=== PATIENT | male | born 1985 | race African-American/Black ===

== ENCOUNTER 2017-10-24 14:27 | Inpatient (IN) | payer OTHER ==
--- NOTE | 2017-10-24 15:49 | HP ---
CIWA Score - CIWA Score Nausea/Vomitin-No Nausea/No Vomiting Muscle Tremors: 4-Moderate,w/Arms Extend Anxiety: 4-Mod. Anxious/Guarded Agitation: 1-Slight > Activity Paroxysmal Sweats: 3 Orientation: 2-Disoriented Date<2 days Tacttile Disturbances: 1-Very Mild Itch/Numbness Auditory Disturbances: 0-None Visual Disturbances: 0-None Headache: 3-Moderate CIWA-Ar Total Score: 18 Admission ROS BHS - HPI Chief Complaint: I am here to detox from alcohol History of Present Illness: 32 yo male with a 15 year hx of alcohol dependence and hx of HTN with no medications. Last detox and rehab 3 years ago at [facility]. Longest period of sobriety 2 year with AA. Exam Limitations: No Limitations - Ebola screening Have you traveled outside of the country in the last 21 days: No (N) Have you had contact with anyone from an Ebola affected area: No Have you been sick,other than usual withdrawal symptoms: No Do you have a fever: No - Review of Systems Constitutional: Diaphoresis, Loss of Appetite, Unintentional Wgt. Loss EENT: reports: No Symptoms Reported Respiratory: reports: No Symptoms reported Cardiac: reports: No Symptoms Reported GI: reports: No Symptoms Reported : reports: No Symptoms Reported Musculoskeletal: reports: Joint Pain, Muscle Pain (pain right shoulder) Integumentary: reports: Other (dry skin) Neuro: reports: Headache, Tremors Hematology: reports: No Symptoms Reported Psychiatric: reports: Mood/Affect Appropiate, Orientated x3, Anxious, Depressed , other Other Systems: Reviewed and Negative Patient History - Patient Medical History Hx Anemia: No Hx Asthma: No Hx Chronic Obstructive Pulmonary Disease (COPD): No Hx Cancer: No Hx Cardiac Disorders: No Hx Congestive Heart Failure: No Hx Hypertension: Yes (No medications ) Hx Hypercholesterolemia: No Hx Pacemaker: No HX Cerebrovascular Accident: No Hx Seizures: No Hx Dementia: No Hx Diabetes: No Hx Gastrointestinal Disorders: No Hx Liver Disease: No Hx Genitourinary Disorders: No Hx Sexually Transmitted Disorders: No Hx Renal Disease (ESRD): No Hx Thyroid Disease: No Hx Human Immunodeficiency Virus (HIV): No (Negative ( 1 year ago)) Hx Hepatitis C: No Hx Depression: Yes Hx Suicide Attempt: No Hx Bipolar Disorder: No Hx Schizophrenia: No Other Medical History: reports hx of Anxiety - Patient Surgical History Past Surgical History: No Hx Neurologic Surgery: No Hx Cataract Extraction: No Hx Cardiac Surgery: No Hx Lung Surgery: No Hx Breast Surgery: No Hx Breast Biopsy: No Hx Abdominal Surgery: No Hx Appendectomy: No Hx Cholecystectomy: No Hx Genitourinary Surgery: No Hx Orthopedic Surgery: No Anesthesia Reaction: No - PPD History Previous Implant?: Yes Documented Results: Negative w/o proof Implanted On Prior [facility] Admission?: No PPD to be Administered?: Yes - Reproductive History Patient is a Female of Child Bearing Age (11 -55 yrs old): No - Smoking Cessation Smoking history: Current some day smoker Have you smoked in the past 12 months: Yes Aproximately how many cigarettes per day: 10 (10 years) Hx Chewing Tobacco Use: No Initiated information on smoking cessation: Yes 'Breaking Loose' booklet given: 10/24/17 - Substance & Tx. History Hx Alcohol Use: Yes Hx Substance Use: No Hx Substance Use Treatment: Yes (Detox and Rehab 3 years ago at [facility]) - Substances Abused Alcohol Route: Oral Frequency: Daily Amount used: 1 pint of vodka Age of first use: 15 Date of Last Use: 10/23/17 Family Disease History - Family Disease History Family Disease History: CA: Mother ( Breast cancer ), Other: Father ( Alieve and well), Sister (alieve no significant health hx) Admission Physical Exam S - Vital Signs Vital Signs: Vital Signs - 24 hr 10/24/17 14:36 Temperature 96.5 F L Pulse Rate 95 H Respiratory 18 Rate Blood Pressure 164/95 - Physical General Appearance: Yes: No Apparent Distress, Appropriately Dressed, Sweating, Anxious HEENTM: Yes: Hearing grossly Normal, Normal ENT Inspection, Normocephalic, Normal Voice, REYNA, Pharynx Normal Respiratory: Yes: Chest Non-Tender, Lungs Clear, No Respiratory Distress, No Accessory Muscle Use Neck: Yes: No masses,lesions,Nodules, Supple, Trachea in good position Breast: Yes: Breast Exam Deferred Cardiology: Yes: Regular Rhythm, Regular Rate, S1, S2 Abdominal: Yes: Normal Bowel Sounds, Non Tender, Flat, Soft Genitourinary: Yes: Within Normal Limits (no urinary symptoms reported) Back: Yes: Within Normal Limits, Normal Inspection Musculoskeletal: Yes: full range of Motion, Gait Steady Extremities: Yes: Normal Capillary Refill, Normal Inspection, Normal Range of Motion, Non-Tender Neurological: Yes: felt washing machine tender II-XII NML intact, Fully Oriented, Alert, Motor Strength 5/5, Normal Response, Depressed Affect Integumentary: Yes: Normal Color, Dry, Warm, Other (poor skin turgor) Lymphatic: Yes: Within Normal Limits - Diagnostic (1) Alcohol dependence with uncomplicated withdrawal Current Visit: Yes Status: Acute (2) Anxious mood Current Visit: Yes Status: Acute (3) Depressed mood Current Visit: Yes Status: Acute (4) Dehydration Current Visit: Yes Status: Acute Cleared for Admission [facility] - Detox or Rehab [facility] Level of Care: Medically Managed Detox Regimen/Protocol: Librium [facility] Breath Alcohol Content Breath Alcohol Content: 0.207 Vital Signs - Vital Signs Vital Signs Refused: No Temperature: 96.5 F Temperature Source: Oral Pulse Rate: 95 Respiratory Rate: 18 Blood Pressure: 164/95 BP Location: Right Arm Blood Pressure Position: Sitting - Height Height: 5 ft 11 in - Weight Weight: 69 kg Weight Measurement Method: Standing Scale Body Mass Index (BMI): 21.2 - Bowel Function Bowel Movement: Yes Urine Drug Screen - Results Drug Screen Negative: Yes
[2017-10-24 16:06] VITALS: BMI 21.2
[2017-10-24] MEDS ORDERED: MAGNESIUM HYDROX 2400MG/30ML ORAL SUSPENSION 30 ML CUP PO PRN (16:10)
[2017-10-24] MEDS ORDERED: MAG HYDROX/AL HYDROX/SIMETH 30 ML UNIT-DOSE CUP PO PRN (16:10)
[2017-10-24] MEDS ORDERED: hydrOXYzine PAMOATE 50 MG CAPSULE (FP) PO PRN (16:10)
[2017-10-24] MEDS ORDERED: ACETAMINOPHEN 325 MG TABLET (FP) PO PRN (16:10)
[2017-10-24] MEDS ORDERED: MAGNESIUM CITRATE 300 ML BOTTLE PO PRN (16:10)
[2017-10-24] MEDS ORDERED: NICOTINE POLACRILEX 2 MG GUM BC PRN (16:10)
[2017-10-24] MEDS ORDERED: LOPERAMIDE HCL 2 MG CAPSULE PO PRN (16:10)
[2017-10-24] MEDS ORDERED: guaiFENesin/D-METHORPHAN HB 10 ML UNIT-DOSE CUPS PO PRN (16:10)
[2017-10-24] MEDS ORDERED: P-EPHED 60MG/TRIPROLIDI 2.5MG TABLET PO PRN (16:10)
[2017-10-24] MEDS ORDERED: IBUPROFEN 400 MG TABLET (FP) PO PRN (16:10)
[2017-10-24] MEDS ORDERED: chlordiazePOXIDE HCL 25 MG CAPSULE PO PRN (16:10)
[2017-10-24] MEDS ORDERED: MENTHOL/PHENOL 1 EACH UD MM PRN (16:10)
[2017-10-24] MEDS ORDERED: chlordiazePOXIDE HCL 25 MG CAPSULE PO ONE (17:00)
[2017-10-24] MEDS: chlordiazePOXIDE HCL 25 MG CAPSULE PO SCH ×2 (20:57→22:42)
[2017-10-24] MEDS: NICOTINE 14 MG/24 HOURS TOPICAL PATCH TD SCH (20:58)
[2017-10-24] MEDS: THIAMINE HCL 100 MG TABLET (FP) PO SCH (22:42)
[2017-10-24 23:36] LABS: URINE APPEARANCE CLEAR; URINE BILIRUBIN NEGATIVE (NEGATIVE); URINE BLOOD NEGATIVE (NEGATIVE); URINE COLOR YELLOW; URINE GLUCOSE (UA) NEGATIVE (NEGATIVE); URINE KETONE NEGATIVE (NEGATIVE); URINE LEUK ESTERASE NEGATIVE (NEGATIVE); URINE NITRITE NEGATIVE (NEGATIVE); URINE UROBILINOGEN NEGATIVE mg/dL (0.2-1.0)
[2017-10-24 23:47] LABS: URINE PROTEIN 2+ (NEGATIVE)
[2017-10-24 23:50] LABS: URINE MUCUS FEW
[2017-10-25] MEDS: chlordiazePOXIDE HCL 25 MG CAPSULE PO SCH ×4 (05:08→22:12)
--- NOTE | 2017-10-25 08:48 | EKG ---
Test Reason : Blood Pressure : / mmHG Vent. Rate : 087 BPM Atrial Rate : 087 BPM P-R Int : 114 ms QRS Dur : 088 ms QT Int : 388 ms P-R-T Axes : -18 032 -19 degrees QTc Int : 466 ms NORMAL SINUS RHYTHM VOLTAGE CRITERIA FOR LEFT VENTRICULAR HYPERTROPHY T WAVE ABNORMALITY, CONSIDER INFERIOR ISCHEMIA ABNORMAL ECG NO PREVIOUS ECGS AVAILABLE Confirmed by Cortez Berry ([id number]) on 10/25/2017 8:48:31 AM Referred By: Brandon Pinzon Confirmed By:Cortez Berry
[2017-10-25] MEDS: PRENATAL VITAMINS W/ FOLIC ACID TABLET (FP) PO SCH (10:05)
[2017-10-25] MEDS: NICOTINE 14 MG/24 HOURS TOPICAL PATCH TD SCH (10:07)
[2017-10-25 10:19] LABS: HEMATOCRIT 42.5 % (35.4-49); HEMOGLOBIN 14.1 GM/dL (11.7-16.9); MCH 32.3 pg (25.7-33.7); MCHC 33.3 g/dl (32.0-35.9); MEAN CELL VOLUME 97.1 fl (80-96); MEAN PLT VOLUME 10.3 fl (7.5-11.1); PLATELET COUNT 82 K/MM3 (134-434); RBC 4.38 M/mm3 (4.00-5.60); RDW 14.2 % (11.9-15.9)
[2017-10-25 10:27] LABS: ALBUMIN 4.2 g/dl (3.4-5.0); ANION GAP 8 (8-16); BILIRUBIN,TOTAL 0.6 mg/dL (0.2-1.0); BLOOD UREA NITROGEN 10 mg/dL (7-18); CHLORIDE 95 mmol/L (98-107); CO2 34 mmol/L (21-32); CREATININE 0.8 mg/dL (0.7-1.3); GLUCOSE,RANDOM 99 mg/dL (74-106); POTASSIUM 3.4 mmol/L (3.5-5.1); SGPT/ALT 101 U/L (12-78); SODIUM 137 mmol/L (136-145); TOT PROT 8.3 g/dl (6.4-8.2)
[2017-10-25 10:28] LABS: ALK PHOS 78 U/L (45-117); SGOT/AST 109 U/L (15-37)
--- NOTE | 2017-10-25 11:38 | PN ---
[facility] CIWA - CIWA Score Nausea/Vomitin-No Nausea/No Vomiting Muscle Tremors: 3 Anxiety: 3 Agitation: 3 Paroxysmal Sweats: 3 Orientation: 0-Oriented Tacttile Disturbances: 3-Moderate Itch/Numb/Burn Auditory Disturbances: 0-None Visual Disturbances: 2-Mild Sensitivity Headache: 0-None Present CIWA-Ar Total Score: 17 [facility] Progress Note (SOAP) Subjective: Tremors, Interrupted Sleep, Fatigue, Sweating. Objective: PT. A & O X 3, OBSERVED AMBULATING ON UNIT. NO ACUTE DISTRESS. PATIENT DENIES CHEST PAIN, DIZZINESS, AND SOB. PATIENT REPORTS HISTORY OF HTN, BUT DENIES HISTORY OF TREATMENT FOR HTN. 10/25/17 11:37 Vital Signs Temperature 96.7 F L 10/25/17 09:23 Pulse Rate 100 H 10/25/17 09:23 Respiratory Rate 18 10/25/17 09:23 Blood Pressure 158/118 10/25/17 09:23 O2 Sat by Pulse Oximetry (%) Laboratory Tests 10/24/17 10/25/17 10/25/17 23:20 07:00 07:00 WBC 3.0 L RBC 4.38 Hgb 14.1 Hct 42.5 MCV 97.1 H MCH 32.3 MCHC 33.3 RDW 14.2 Plt Count 82 L MPV 10.3 Sodium 137 Potassium 3.4 L Chloride 95 L Carbon Dioxide 34 H Anion Gap 8 BUN 10 Creatinine 0.8 Creat Clearance w eGFR > 60 Random Glucose 99 Calcium 9.0 Total Bilirubin 0.6 AST 109 H ALT 101 H Alkaline Phosphatase 78 Total Protein 8.3 H Albumin 4.2 Urine Color Yellow Urine Appearance Clear Urine pH 6.0 Ur Specific [place] 1.015 Urine Protein 2+ H Urine Glucose (UA) Negative Urine Ketones Negative Urine Blood Negative Urine Nitrite Negative Urine Bilirubin Negative Urine Urobilinogen Negative Ur Leukocyte Esterase Negative Urine WBC (Auto) 1 Urine RBC (Auto) 1 Urine Mucus Few LABS NOTED. 10/25/17 11:43 Assessment: 10/25/17 11:37 WITHDRAWAL SYMPTOMS. HYPOKALEMIA. HYPERTENSION. 10/25/17 11:44 Plan: CONTINUE DETOX. INCREASE DAILY PO FLUID INTAKE. K-DUR, 20 MEQ PO X 1 NOW, THEN 20 MEQ PO BID AFTER. LISINOPRIL, 10 MG PO DAILY (FIRST DOSE NOW.). REPEAT AST, ALT ON 10/27/2017 FOR ELEVATED ADMISSION LEVELS. INCREASE DAILY P[O FLUID INTAKE.
[2017-10-25] MEDS ORDERED: POTASSIUM CHLORIDE TABS 20 MEQ TABLET.ER (FP) PO ONE (11:40)
[2017-10-25] MEDS: LISINOPRIL 10 MG TABLET (FP) PO SCH (12:01)
--- NOTE | 2017-10-25 12:44 | CONSULT ---
[facility] Psychiatric Consult - Data Date of interview: 10/25/17 Admission source: [facility] Identifying data: Pt. is a 32 year old male, but , without kids , and currently unemployed. This is patient's first admission to [facility]. Pt. admitted to for alcohol dependence. Substance Abuse History: Smoking Cessation. Smoking history: Current some day smoker. Have you smoked in the past 12 months: Yes. Aproximately how many cigarettes per day: 10 (10 years). Hx Chewing Tobacco Use: No. Initiated information on smoking cessation: Yes. 'Breaking Loose' booklet given: . - Substance & Tx. History. Hx Alcohol Use: Yes. Hx Substance Use: No. Hx Substance Use Treatment: Yes (Detox and Rehab 3 years ago at [facility]). - Substances Abused. Alcohol. Route: Oral. Frequency: Daily. Amount used: 1 pint of vodka. Age of first use: 15. Date of Last Use: 10/23/17 Medical History: Hypertension. Psychiatric History: Pt. denies h/o psychiatric hospitalizations and suicide attempts. Reports OPC 2 years ago, diagnosed with anxiety and was prescribed anxiety medications which he can't recall. Currently patient has no OPC and does take medications for his anxiety. Physical/Sexual Abuse/Trauma History: Denies. Mental Status Exam - Mental Status Exam Alert and Oriented to: Time, Place, Person Cognitive Function: Good Patient Appearance: Well Groomed Mood: Hopeful Affect: Appropriate Patient Behavior: Appropriate, Cooperative Speech Pattern: Appropriate Voice Loudness: Normal Thought Process: Goal Oriented Thought Disorder: Not Present Hallucinations: Denies Homicidal Ideation: Denies Insight/Judgement: Poor Sleep: Fair Appetite: Fair Muscle strength/Tone: Normal Gait/Station: Normal Psychiatric Findings - Problem List ([place] 1, 2,3) (1) Alcohol dependence with uncomplicated withdrawal Current Visit: Yes Status: Acute (2) Anxiety disorder Current Visit: No Status: Suspected Comment: Self report. (3) Insomnia Current Visit: Yes Status: Acute - Initial Treatment Plan Initial Treatment Plan: Psychoeducation provided. Detoxification in progress. Benadryl 50mg qhs ordered for insomnia. Observation.
[2017-10-25] MEDS: POTASSIUM CHLORIDE TABS 20 MEQ TABLET.ER (FP) PO SCH (17:41)
[2017-10-25] MEDS: diphenhydrAMINE HCL 50 MG CAPSULE PO PRN (22:12)
[2017-10-25] MEDS: THIAMINE HCL 100 MG TABLET (FP) PO SCH (22:12)
[2017-10-26] MEDS: chlordiazePOXIDE HCL 25 MG CAPSULE PO SCH ×2 (05:29→10:03)
[2017-10-26] MEDS: PRENATAL VITAMINS W/ FOLIC ACID TABLET (FP) PO SCH (10:03)
[2017-10-26] MEDS: POTASSIUM CHLORIDE TABS 20 MEQ TABLET.ER (FP) PO SCH ×2 (10:03→17:48)
[2017-10-26] MEDS: NICOTINE 14 MG/24 HOURS TOPICAL PATCH TD SCH (10:03)
[2017-10-26] MEDS: LISINOPRIL 10 MG TABLET (FP) PO SCH ×2 (10:03→22:04)
--- NOTE | 2017-10-26 12:39 | PN ---
[facility] CIWA - CIWA Score Nausea/Vomitin-No Nausea/No Vomiting Muscle Tremors: 2 Anxiety: 3 Agitation: 2 Paroxysmal Sweats: 3 Orientation: 0-Oriented Tacttile Disturbances: 2-Mild Itch/Numbness/Burn Auditory Disturbances: 2-Mild Harshness/Frighten Visual Disturbances: 2-Mild Sensitivity Headache: 0-None Present CIWA-Ar Total Score: 16 [facility] Progress Note (SOAP) Subjective: Interrupted Sleep, Anxious, Sweating. Objective: PT. A & O X 3, OBSERVED AMBULATING ON UNIT. NO ACUTE DISTRESS. PT. DENIES CHEST PAIN. 10/26/17 12:36 Vital Signs Temperature 97.1 F L 10/26/17 09:11 Pulse Rate 83 10/26/17 09:11 Respiratory Rate 18 10/26/17 09:11 Blood Pressure 138/96 10/26/17 09:11 O2 Sat by Pulse Oximetry (%) Laboratory Tests 10/24/17 10/25/17 10/25/17 23:20 07:00 07:00 WBC 3.0 L RBC 4.38 Hgb 14.1 Hct 42.5 MCV 97.1 H MCH 32.3 MCHC 33.3 RDW 14.2 Plt Count 82 L MPV 10.3 Sodium 137 Potassium 3.4 L Chloride 95 L Carbon Dioxide 34 H Anion Gap 8 BUN 10 Creatinine 0.8 Creat Clearance w eGFR > 60 Random Glucose 99 Calcium 9.0 Total Bilirubin 0.6 AST 109 H ALT 101 H Alkaline Phosphatase 78 Total Protein 8.3 H Albumin 4.2 Urine Color Yellow Urine Appearance Clear Urine pH 6.0 Ur Specific [place] 1.015 Urine Protein 2+ H Urine Glucose (UA) Negative Urine Ketones Negative Urine Blood Negative Urine Nitrite Negative Urine Bilirubin Negative Urine Urobilinogen Negative Ur Leukocyte Esterase Negative Urine WBC (Auto) 1 Urine RBC (Auto) 1 Urine Mucus Few RPR Titer HIV 1&2 Antibody Screen HIV P24 Antigen 10/25/17 10/25/17 07:00 07:00 WBC RBC Hgb Hct MCV MCH MCHC RDW Plt Count MPV Sodium Potassium Chloride Carbon Dioxide Anion Gap BUN Creatinine Creat Clearance w eGFR Random Glucose Calcium Total Bilirubin AST ALT Alkaline Phosphatase Total Protein Albumin Urine Color Urine Appearance Urine pH Ur Specific [place] Urine Protein Urine Glucose (UA) Urine Ketones Urine Blood Urine Nitrite Urine Bilirubin Urine Urobilinogen Ur Leukocyte Esterase Urine WBC (Auto) Urine RBC (Auto) Urine Mucus RPR Titer Nonreactive HIV 1&2 Antibody Screen Negative HIV P24 Antigen Negative LABS NOTED. 10/26/17 12:37 Assessment: 10/26/17 12:36 WITHDRAWAL SYMPTOMS. HYPOKALEMIA. HYPERTENSION. 10/26/17 12:38 Plan: CONTINUE DETOX. CONTINUE TO MONITOR BP. CONTINUE K-DUR. INCREASE DAILY PO FLUID INTAKE.
--- NOTE | 2017-10-26 15:00 | PN ---
S Progress Note Note: Lisinopril dose increased to 10 mg PO BID for elevated BP. Lesly Rosenbaum [employer]
[2017-10-26] MEDS: chlordiazePOXIDE 5 MG CAPSULE PO SCH ×2 (17:48→22:04)
[2017-10-26] MEDS: THIAMINE HCL 100 MG TABLET (FP) PO SCH (22:04)
[2017-10-26] MEDS: diphenhydrAMINE HCL 50 MG CAPSULE PO PRN (22:05)
[2017-10-27] MEDS: chlordiazePOXIDE 5 MG CAPSULE PO SCH ×2 (05:43→10:04)
[2017-10-27] MEDS: PRENATAL VITAMINS W/ FOLIC ACID TABLET (FP) PO SCH (10:04)
[2017-10-27] MEDS: POTASSIUM CHLORIDE TABS 20 MEQ TABLET.ER (FP) PO SCH ×2 (10:04→17:50)
[2017-10-27] MEDS: LISINOPRIL 10 MG TABLET (FP) PO SCH ×2 (10:04→22:04)
[2017-10-27] MEDS: NICOTINE 14 MG/24 HOURS TOPICAL PATCH TD SCH (10:04)
[2017-10-27 10:17] LABS: SGOT/AST 126 U/L (15-37); SGPT/ALT 133 U/L (12-78)
--- NOTE | 2017-10-27 13:06 | PN ---
[facility] Progress Note (SOAP) Subjective: Anxious, Sweating. Objective: PT. A & O X 3, OBSERVED AMBULATING ON UNIT. NO ACUTE DISTRESS. 10/27/17 13:05 Vital Signs Temperature 97.1 F L 10/27/17 13:03 Pulse Rate 80 10/27/17 13:03 Respiratory Rate 18 10/27/17 13:03 Blood Pressure 140/89 10/27/17 13:03 O2 Sat by Pulse Oximetry (%) Laboratory Tests 10/24/17 10/25/17 10/25/17 23:20 07:00 07:00 WBC 3.0 L RBC 4.38 Hgb 14.1 Hct 42.5 MCV 97.1 H MCH 32.3 MCHC 33.3 RDW 14.2 Plt Count 82 L MPV 10.3 Sodium 137 Potassium 3.4 L Chloride 95 L Carbon Dioxide 34 H Anion Gap 8 BUN 10 Creatinine 0.8 Creat Clearance w eGFR > 60 Random Glucose 99 Calcium 9.0 Total Bilirubin 0.6 AST 109 H ALT 101 H Alkaline Phosphatase 78 Total Protein 8.3 H Albumin 4.2 Urine Color Yellow Urine Appearance Clear Urine pH 6.0 Ur Specific [place] 1.015 Urine Protein 2+ H Urine Glucose (UA) Negative Urine Ketones Negative Urine Blood Negative Urine Nitrite Negative Urine Bilirubin Negative Urine Urobilinogen Negative Ur Leukocyte Esterase Negative Urine WBC (Auto) 1 Urine RBC (Auto) 1 Urine Mucus Few RPR Titer HIV 1&2 Antibody Screen HIV P24 Antigen 10/25/17 10/25/17 10/27/17 07:00 07:00 07:00 WBC RBC Hgb Hct MCV MCH MCHC RDW Plt Count MPV Sodium Potassium Chloride Carbon Dioxide Anion Gap BUN Creatinine Creat Clearance w eGFR Random Glucose Calcium Total Bilirubin AST 126 H ALT 133 H D Alkaline Phosphatase Total Protein Albumin Urine Color Urine Appearance Urine pH Ur Specific [place] Urine Protein Urine Glucose (UA) Urine Ketones Urine Blood Urine Nitrite Urine Bilirubin Urine Urobilinogen Ur Leukocyte Esterase Urine WBC (Auto) Urine RBC (Auto) Urine Mucus RPR Titer Nonreactive HIV 1&2 Antibody Screen Negative HIV P24 Antigen Negative LABS NOTED. Assessment: 10/27/17 13:05 WITHDRAWAL SYMPTOMS. Plan: CONTINUE DETOX. INCREASE DAILY PO FLUID INTAKE.
[2017-10-27] MEDS: chlordiazePOXIDE HCL 10 MG CAPSULE PO SCH ×2 (17:50→22:04)
[2017-10-27] MEDS: THIAMINE HCL 100 MG TABLET (FP) PO SCH (22:04)
[2017-10-27] MEDS: diphenhydrAMINE HCL 50 MG CAPSULE PO PRN (22:05)
[2017-10-28] MEDS: chlordiazePOXIDE HCL 10 MG CAPSULE PO SCH (04:35)
[2017-10-28 06:05] VITALS: BP 134/83; PULSE 70; TEMP 97.6
[2017-10-28] MEDS: PRENATAL VITAMINS W/ FOLIC ACID TABLET (FP) PO SCH (09:23)
[2017-10-28] MEDS: LISINOPRIL 10 MG TABLET (FP) PO SCH (09:23)
[2017-10-28] MEDS: POTASSIUM CHLORIDE TABS 20 MEQ TABLET.ER (FP) PO SCH (09:23)
[2017-10-28] MEDS: NICOTINE 14 MG/24 HOURS TOPICAL PATCH TD SCH (09:24)
--- NOTE | 2017-10-28 13:46 | DS ---
[facility] Detox Discharge Summary Admission Date: 10/24/17 Discharge Date: 10/28/17 - History Present History: Alcohol Dependence Additional Comments: PATIENT WILL RETURN TO AA / OUTPATIENT SUPPORT GROUP MEETINGS HE ATTENDED PRIOR TO ADMISSION TO DETOX. PATIENT ALSO ADVISED TO FOLLOW-UP WITH PROJECT PRODUCT MANAGER IN [facility] (PATIENT UNABLE TO RECALL NAME OF MEDICAL PROVIDER AT THIS TIME) AFTER DISCHARGE FROM DETOX FOR GENERAL MEDICAL ASSESSMENT AND FOR HISTORY OF HYPERTENSION. PATIENT WAS DISCHARGED FROM DETOX UNIT IN STABLE MEDICAL CONDITION. Pertinent Past History: Depression, HTN, Dehydration, Anxiety, Insomnia. - Physical Exam Results Vital Signs: Vital Signs Temperature 97.6 F 10/28/17 06:04 Pulse Rate 70 10/28/17 06:04 Respiratory Rate 18 10/28/17 06:04 Blood Pressure 134/83 10/28/17 06:04 O2 Sat by Pulse Oximetry (%) Pertinent Admission Physical Exam Findings: WITHDRAWAL SYMPTOMS. Laboratory Tests 10/24/17 10/25/17 10/25/17 23:20 07:00 07:00 WBC 3.0 L RBC 4.38 Hgb 14.1 Hct 42.5 MCV 97.1 H MCH 32.3 MCHC 33.3 RDW 14.2 Plt Count 82 L MPV 10.3 Sodium 137 Potassium 3.4 L Chloride 95 L Carbon Dioxide 34 H Anion Gap 8 BUN 10 Creatinine 0.8 Creat Clearance w eGFR > 60 Random Glucose 99 Calcium 9.0 Total Bilirubin 0.6 AST 109 H ALT 101 H Alkaline Phosphatase 78 Total Protein 8.3 H Albumin 4.2 Urine Color Yellow Urine Appearance Clear Urine pH 6.0 Ur Specific [place] 1.015 Urine Protein 2+ H Urine Glucose (UA) Negative Urine Ketones Negative Urine Blood Negative Urine Nitrite Negative Urine Bilirubin Negative Urine Urobilinogen Negative Ur Leukocyte Esterase Negative Urine WBC (Auto) 1 Urine RBC (Auto) 1 Urine Mucus Few RPR Titer HIV 1&2 Antibody Screen HIV P24 Antigen 10/25/17 10/25/17 10/27/17 07:00 07:00 07:00 WBC RBC Hgb Hct MCV MCH MCHC RDW Plt Count MPV Sodium Potassium Chloride Carbon Dioxide Anion Gap BUN Creatinine Creat Clearance w eGFR Random Glucose Calcium Total Bilirubin AST 126 H ALT 133 H D Alkaline Phosphatase Total Protein Albumin Urine Color Urine Appearance Urine pH Ur Specific [place] Urine Protein Urine Glucose (UA) Urine Ketones Urine Blood Urine Nitrite Urine Bilirubin Urine Urobilinogen Ur Leukocyte Esterase Urine WBC (Auto) Urine RBC (Auto) Urine Mucus RPR Titer Nonreactive HIV 1&2 Antibody Screen Negative HIV P24 Antigen Negative LABS NOTED. - Treatment Hospital Course: Detox Protocol Followed, Detoxed Safely, Responded well, Discharged Condition Good Patient has Accepted a Rehab Referral to: PT WILL RETURN TO OUTPATIENT SUPPORT GROUP MEETINGS FOR AFTERCARE. - Medication Discharge Medications: Ambulatory Orders Lisinopril 10 mg PO DAILY #30 tablet 10/27/17 - Diagnosis (1) Alcohol dependence with uncomplicated withdrawal Status: Acute (2) Anxious mood Status: Acute (3) Dehydration Status: Acute (4) Depressed mood Status: Acute (5) Insomnia Status: Acute Qualifiers: Insomnia type: unspecified Qualified Code(s): G47.00 - Insomnia, unspecified (6) Anxiety disorder Status: Suspected Qualifiers: Anxiety disorder type: unspecified anxiety disorder Qualified Code(s): F41.9 - Anxiety disorder, unspecified - AMA Did Patient Leave Against Medical Advice: No
== END 2017-10-28 09:33 | disposition home or self-care (01) | DRG 775 ==
LOC: YASAS 14:27 → Y3N 19:27
PROVIDERS: ADMIT Internal Medicine; ATTEND Internal Medicine
PROC: HZ2ZZZZ Detoxification Services for Substance Abuse Treatment (ICD-10-PCS; principal; 2017-10-24)
DX: F10.230 Alcohol dependence with withdrawal, uncomplicated (principal); F17.210 Nicotine dependence, cigarettes, uncomplicated; F41.9 Anxiety disorder, unspecified; F32.9 Major depressive disorder, single episode, unspecified; I10 Essential (primary) hypertension; E86.0 Dehydration; G47.00 Insomnia, unspecified; E87.6 Hypokalemia
CPT/HCPCS: 36415; 80053; 81003; 81015; 84450; 84460; 85027; 86593; 87389; 93005; 93010

== ENCOUNTER 2018-03-11 19:26 | Inpatient (IN) | payer OTHER ==
[2018-03-11 19:47] VITALS: BMI 22.3
--- NOTE | 2018-03-11 21:12 | HP ---
CIWA Score - CIWA Score Nausea/Vomitin Muscle Tremors: 2 Anxiety: 4-Mod. Anxious/Guarded Agitation: 4-Moderately Restless Paroxysmal Sweats: 1-Minimal Palms Moist Orientation: 0-Oriented Tacttile Disturbances: 0-None Auditory Disturbances: 0-None Visual Disturbances: 0-None Headache: 0-None Present CIWA-Ar Total Score: 14 Admission ROS BHS - HPI Chief Complaint: Alcohol withdrawal symptoms Allergies/Adverse Reactions: Allergies Allergy/AdvReac Type Severity Reaction Status Date / Time No Known Allergies Allergy Verified 03/11/18 19:48 History of Present Illness: 33 years old male with a long history of alcohol dependence is seeking admission to detox. Patient has been to previous detox and reports 18 months of sobriety. He has medical history of HTN, anxiety, depression nicotine dependence and insomnia. He denies suicide attempt and suicidal ideation at this time. Exam Limitations: No Limitations - Ebola screening Have you traveled outside of the country in the last 21 days: No Have you had contact with anyone from an Ebola affected area: No Have you been sick,other than usual withdrawal symptoms: No Do you have a fever: No - Review of Systems Constitutional: Chills, Loss of Appetite, Malaise, Night Sweats, Weakness EENT: reports: No Symptoms Reported Respiratory: reports: No Symptoms reported Cardiac: reports: No Symptoms Reported GI: reports: Diarrhea (x 4), Nausea, Poor Appetite, Poor Fluid Intake, Vomiting (x 2), Abdominal cramping : reports: No Symptoms Reported Musculoskeletal: reports: Back Pain, Muscle Pain Neuro: reports: Tremors Endocrine: reports: No Symptoms Reported Hematology: reports: No Symptoms Reported Psychiatric: reports: Orientated x3, Agitated, Anxious Other Systems: Reviewed and Negative Patient History - Patient Medical History Hx Anemia: No Hx Asthma: No Hx Chronic Obstructive Pulmonary Disease (COPD): No Hx Cancer: No Hx Cardiac Disorders: No Hx Congestive Heart Failure: No Hx Hypertension: Yes (Lisinopril) Hx Hypercholesterolemia: No Hx Pacemaker: No HX Cerebrovascular Accident: No Hx Seizures: No Hx Dementia: No Hx Diabetes: No Hx Gastrointestinal Disorders: No Hx Liver Disease: No Hx Genitourinary Disorders: No Hx Sexually Transmitted Disorders: No Hx Renal Disease (ESRD): No Hx Thyroid Disease: No Hx Human Immunodeficiency Virus (HIV): No (Negative 2017) Hx Hepatitis C: No Hx Depression: Yes (Wellbutrin) Hx Suicide Attempt: No (Denies suicide attempt and suicidal ideation at this time) Hx Bipolar Disorder: No Hx Schizophrenia: No Other Medical History: Anxiety - Wellbutrin - Patient Surgical History Past Surgical History: No Hx Neurologic Surgery: No Hx Cataract Extraction: No Hx Cardiac Surgery: No Hx Lung Surgery: No Hx Abdominal Surgery: No Hx Appendectomy: No Hx Cholecystectomy: No Hx Genitourinary Surgery: No Hx Orthopedic Surgery: No Anesthesia Reaction: No - PPD History Previous Implant?: Yes Documented Results: Negative w/proof Implanted On Prior [facility] Admission?: Yes Date: 10/26/17 PPD to be Administered?: No - Reproductive History Patient is a Female of Child Bearing Age (11 -55 yrs old): No (Male) - Smoking Cessation Smoking history: Current every day smoker Have you smoked in the past 12 months: Yes Aproximately how many cigarettes per day: 10 Cigars Per Day: 0 Hx Chewing Tobacco Use: No Initiated information on smoking cessation: Yes 'Breaking Loose' booklet given: 03/11/18 - Substance & Tx. History Hx Alcohol Use: Yes Hx Substance Use: No Substance Use Type: Alcohol Hx Substance Use Treatment: No - Substances Abused Alcohol Route: Oral Frequency: Daily Amount used: liquor- 2pints Age of first use: 15 Date of Last Use: 03/11/18 Family Disease History - Family Disease History Family Disease History: CA: Mother ( Breast cancer ), Other: Father ( Alive and well), Sister (Alive no significant health hx) Admission Physical Exam BHS - Vital Signs Vital Signs: Vital Signs - 24 hr 03/11/18 19:45 Temperature 97.2 F L Pulse Rate 96 H Respiratory 16 Rate Blood Pressure 150/108 - Physical General Appearance: Yes: Moderate Distress, Tremorous, Irritable, Sweating, Anxious HEENTM: Yes: EOMI, Normal ENT Inspection, Normal Voice, REYNA Respiratory: Yes: Lungs Clear, Normal Breath Sounds, No Respiratory Distress Neck: Yes: Supple Breast: Yes: Breast Exam Deferred Cardiology: Yes: Regular Rhythm, Regular Rate, S1, S2 Abdominal: Yes: Normal Bowel Sounds, Soft Genitourinary: Yes: Within Normal Limits Back: Yes: Normal Inspection Musculoskeletal: Yes: Back pain, Muscle Pain Extremities: Yes: Tremors Neurological: Yes: Alert, Normal Mood/Affect Integumentary: Yes: Warm Lymphatic: Yes: Within Normal Limits - Diagnostic (1) Alcohol dependence with uncomplicated withdrawal Current Visit: Yes Status: Chronic (2) Dehydration Current Visit: Yes Status: Chronic (3) Anxiety disorder Current Visit: Yes Status: Chronic Qualifiers: Anxiety disorder type: generalized anxiety disorder Qualified Code(s): F41.1 - Generalized anxiety disorder Comment: Self report. (4) Depressed mood Current Visit: Yes Status: Chronic (5) Hypertension Current Visit: Yes Status: Chronic Qualifiers: Hypertension type: essential hypertension Qualified Code(s): I10 - Essential (primary) hypertension (6) Nicotine dependence Current Visit: Yes Status: Chronic Qualifiers: Nicotine product type: cigarettes Cleared for Admission S - Detox or Rehab [facility] Level of Care: Medically Managed Detox Regimen/Protocol: Librium [facility] Breath Alcohol Content Breath Alcohol Content: 0.287 Urine Drug Screen - Results Drug Screen Negative: Yes
[2018-03-11] MEDS ORDERED: ACETAMINOPHEN 325 MG TABLET (FP) PO PRN (21:21)
[2018-03-11] MEDS ORDERED: P-EPHED 60MG/TRIPROLIDI 2.5MG TABLET PO PRN (21:21)
[2018-03-11] MEDS ORDERED: guaiFENesin/D-METHORPHAN HB 10 ML UNIT-DOSE CUPS PO PRN (21:21)
[2018-03-11] MEDS ORDERED: chlordiazePOXIDE HCL 25 MG CAPSULE PO PRN (21:21)
[2018-03-11] MEDS ORDERED: MAGNESIUM HYDROX 2400MG/30ML ORAL SUSPENSION 30 ML CUP PO PRN (21:21)
[2018-03-11] MEDS ORDERED: MAGNESIUM CITRATE 300 ML BOTTLE PO PRN (21:21)
[2018-03-11] MEDS ORDERED: IBUPROFEN 400 MG TABLET (FP) PO PRN (21:21)
[2018-03-11] MEDS ORDERED: LOPERAMIDE HCL 2 MG CAPSULE PO PRN (21:21)
[2018-03-11] MEDS ORDERED: MAG HYDROX/AL HYDROX/SIMETH 30 ML UNIT-DOSE CUP PO PRN (21:21)
[2018-03-11] MEDS ORDERED: MENTHOL/PHENOL 1 EACH UD MM PRN (21:21)
[2018-03-11] MEDS ORDERED: cloNIDine HCL 0.1 MG TABLET PO ONE (21:24)
[2018-03-11] MEDS: chlordiazePOXIDE HCL 25 MG CAPSULE PO SCH (23:21)
[2018-03-11] MEDS: THIAMINE HCL 100 MG TABLET (FP) PO SCH (23:21)
[2018-03-11] MEDS: MELATONIN 5 MG TABLETS PO PRN (23:23)
[2018-03-12] MEDS: chlordiazePOXIDE HCL 25 MG CAPSULE PO SCH ×4 (05:49→22:18)
[2018-03-12] MEDS ORDERED: LISINOPRIL 10 MG TABLET (FP) PO SCH (10:00)
[2018-03-12] MEDS: PRENATAL VITAMINS W/ FOLIC ACID TABLET (FP) PO SCH (10:11)
[2018-03-12] MEDS: NICOTINE 14 MG/24 HOURS TOPICAL PATCH TD SCH (10:12)
[2018-03-12 10:50] LABS: HEMATOCRIT 29.4 % (35.4-49); HEMOGLOBIN 10.3 GM/dL (11.7-16.9); MCH 33.9 pg (25.7-33.7); MCHC 34.9 g/dl (32.0-35.9); MEAN CELL VOLUME 97.2 fl (80-96); MEAN PLT VOLUME 7.7 fl (7.5-11.1); PLATELET COUNT 184 K/MM3 (134-434); RBC 3.03 M/mm3 (4.00-5.60); RDW 13.3 % (11.9-15.9); WHITE BLOOD COUNT 3.6 K/mm3 (4.0-10.0)
[2018-03-12 11:04] LABS: CHLORIDE 105 mmol/L (98-107); POTASSIUM 3.1 mmol/L (3.5-5.1); SODIUM 142 mmol/L (136-145)
[2018-03-12 11:25] LABS: ALBUMIN 2.8 g/dl (3.4-5.0); ALK PHOS 68 U/L (45-117); ANION GAP 11 (8-16); BILIRUBIN,TOTAL 0.3 mg/dL (0.2-1.0); BLOOD UREA NITROGEN 6 mg/dL (7-18); CALCIUM 8.1 mg/dL (8.5-10.1); CO2 26 mmol/L (21-32); CREATININE 0.7 mg/dL (0.7-1.3); GLUCOSE,RANDOM 81 mg/dL (74-106); SGOT/AST 92 U/L (15-37); SGPT/ALT 85 U/L (12-78); TOT PROT 6.7 g/dl (6.4-8.2)
[2018-03-12] MEDS: NICOTINE POLACRILEX 2 MG GUM BC PRN ×4 (12:15→23:20)
--- NOTE | 2018-03-12 13:51 | PN ---
S CIWA - CIWA Score Nausea/Vomitin Muscle Tremors: 3 Anxiety: 3 Agitation: 2 Paroxysmal Sweats: 1-Minimal Palms Moist Orientation: 0-Oriented Tacttile Disturbances: 1-Very Mild Itch/Numbness Auditory Disturbances: 1-Very Mild Visual Disturbances: 0-None Headache: 2-Mild CIWA-Ar Total Score: 16 S Progress Note (SOAP) Subjective: alert,irritable,anxious,interrupted sleep,tremor Objective: 03/12/18 13:47 Vital Signs Temperature 98 F 03/12/18 10:45 Pulse Rate 80 03/12/18 10:45 Respiratory Rate 18 03/12/18 10:45 Blood Pressure 141/79 03/12/18 10:45 O2 Sat by Pulse Oximetry (%) 03/12/18 13:47 ekg nsr,inverted t in avf,v4,v5 no chest pain,no sob,no dizziness Laboratory Last Values WBC 3.6 K/mm3 (4.0-10.0) L D 03/12/18 07:55 RBC 3.03 M/mm3 (4.00-5.60) L 03/12/18 07:55 Hgb 10.3 GM/dL (11.7-16.9) L D 03/12/18 07:55 Hct 29.4 % (35.4-49) L D 03/12/18 07:55 MCV 97.2 fl (80-96) H 03/12/18 07:55 MCH 33.9 pg (25.7-33.7) H 03/12/18 07:55 MCHC 34.9 g/dl (32.0-35.9) 03/12/18 07:55 RDW 13.3 % (11.9-15.9) D 03/12/18 07:55 Plt Count 184 K/MM3 (134-434) D 03/12/18 07:55 MPV 7.7 fl (7.5-11.1) D 03/12/18 07:55 Sodium 142 mmol/L (136-145) 03/12/18 07:55 Potassium 3.1 mmol/L (3.5-5.1) L 03/12/18 07:55 Chloride 105 mmol/L (98-107) 03/12/18 07:55 Carbon Dioxide 26 mmol/L (21-32) 03/12/18 07:55 Anion Gap 11 (8-16) 03/12/18 07:55 BUN 6 mg/dL (7-18) L D 03/12/18 07:55 Creatinine 0.7 mg/dL (0.7-1.3) 03/12/18 07:55 Creat Clearance w eGFR > 60 (>60) 03/12/18 07:55 Random Glucose 81 mg/dL (74-106) 03/12/18 07:55 Calcium 8.1 mg/dL (8.5-10.1) L 03/12/18 07:55 Total Bilirubin 0.3 mg/dL (0.2-1.0) D 03/12/18 07:55 AST 92 U/L (15-37) H D 03/12/18 07:55 ALT 85 U/L (12-78) H D 03/12/18 07:55 Alkaline Phosphatase 68 U/L (45-117) D 03/12/18 07:55 Total Protein 6.7 g/dl (6.4-8.2) 03/12/18 07:55 Albumin 2.8 g/dl (3.4-5.0) L D 03/12/18 07:55 Assessment: 03/12/18 13:50 withdrawal symptom Plan: continue detox
[2018-03-12] MEDS ORDERED: cloNIDine HCL 0.1 MG TABLET PO ONE (14:13)
--- NOTE | 2018-03-12 14:49 | EKG ---
Test Reason : Blood Pressure : / mmHG Vent. Rate : 093 BPM Atrial Rate : 093 BPM P-R Int : 134 ms QRS Dur : 086 ms QT Int : 358 ms P-R-T Axes : 044 019 -43 degrees QTc Int : 445 ms NORMAL SINUS RHYTHM NONSPECIFIC T WAVE ABNORMALITY ABNORMAL ECG WHEN COMPARED WITH ECG OF 10-DEC-2017 22:56, NONSPECIFIC T WAVE ABNORMALITY NOW EVIDENT IN ANTERIOR LEADS Confirmed by MD Patrick, Familia ([id number]) on 03/12/2018 2:48:37 PM Referred By: Confirmed By:Familia Nguyen MD
--- NOTE | 2018-03-12 18:37 | CONSULT ---
[facility] Psychiatric Consult - Data Date of interview: 03/12/18 Admission source: [facility] Identifying data: Another admission to [facility] for this 33 y/o [place] born male seeking detox treatment on for alcohol dependence.Patient is ,no children,domiciled,unemployed and supported on welfare. Substance Abuse History: Confirmed by patient in my interview.Smoking history: Current every day smoker. Have you smoked in the past 12 months: Yes. Aproximately how many cigarettes per day: 10. Cigars Per Day: 0. Hx Chewing Tobacco Use: No. Initiated information on smoking cessation: Yes. 'Breaking Loose' booklet given: 03/11/18. - Substance & Tx. History. Hx Alcohol Use: Yes. Hx Substance Use: No. Substance Use Type: Alcohol. Hx Substance Use Treatment: No. - Substances Abused. Alcohol. Route: Oral. Frequency: Daily. Amount used: liquor- 2pints. Age of first use: 15. Date of Last Use: 03/11/18 Medical History: Hypertension. Psychiatric History: No reported history of psychiatric hospitalizations.Diagnosed with MDD and Anxiety Disorder.Mr Hayden sees a private psychiatrist in [place] for medication management.Maintained on wellbutrin XL 150 mg/day.Patient denies history of suicide attempts. Physical/Sexual Abuse/Trauma History: No reported history of abuse.Coping well with divorce. Additional Comment: Drug Screen is negative. Mental Status Exam - Mental Status Exam Alert and Oriented to: Time, Place, Person Cognitive Function: Good Patient Appearance: Well Groomed Mood: Withdrawn, Hopeful Affect: Appropriate, Normal Range Patient Behavior: Appropriate, Cooperative Speech Pattern: Clear, Appropriate Voice Loudness: Normal Thought Process: Intact, Goal Oriented Thought Disorder: Not Present Hallucinations: Denies Suicidal Ideation: Denies Homicidal Ideation: Denies Insight/Judgement: Fair Sleep: Well Appetite: Good Muscle strength/Tone: Normal Gait/Station: Normal Psychiatric Findings - Problem List ([place] 1, 2,3) (1) Alcohol dependence with uncomplicated withdrawal Current Visit: Yes Status: Acute (2) Nicotine dependence Current Visit: Yes Status: Acute Qualifiers: Nicotine product type: cigarettes (3) Depressive disorder Current Visit: Yes Status: Chronic - Initial Treatment Plan Initial Treatment Plan: Psychoeducation.Sleep hygiene.Detoxification.Wellbutrin XL 150 mg po daily.Patient is made aware of the risk of seizures.Consents ( verbally) to this plan of care.Observation.
[2018-03-12] MEDS: THIAMINE HCL 100 MG TABLET (FP) PO SCH (22:18)
[2018-03-12] MEDS: MELATONIN 5 MG TABLETS PO PRN (22:19)
[2018-03-12] MEDS: HYDROCHLOROTHIAZIDE 25 MG TABLET (FP) PO SCH (23:19)
[2018-03-12] MEDS: LISINOPRIL 10 MG TABLET (FP) PO SCH (23:20)
[2018-03-13] MEDS: chlordiazePOXIDE HCL 25 MG CAPSULE PO SCH ×3 (05:09→17:54)
[2018-03-13] MEDS ORDERED: HYDROCHLOROTHIAZIDE 25 MG TABLET (FP) PO SCH (10:00)
[2018-03-13] MEDS: HYDROCHLOROTHIAZIDE 25 MG TABLET (FP) PO SCH (10:38)
[2018-03-13] MEDS: PRENATAL VITAMINS W/ FOLIC ACID TABLET (FP) PO SCH (10:38)
[2018-03-13] MEDS: LISINOPRIL 10 MG TABLET (FP) PO SCH ×2 (10:38→22:23)
[2018-03-13] MEDS: NICOTINE 14 MG/24 HOURS TOPICAL PATCH TD SCH (10:39)
--- NOTE | 2018-03-13 12:47 | PN ---
S CIWA - CIWA Score Nausea/Vomitin-Mild Nausea/No Vomiting Muscle Tremors: 4-Moderate,w/Arms Extend Anxiety: 3 Agitation: 3 Paroxysmal Sweats: 1-Minimal Palms Moist Orientation: 0-Oriented Tacttile Disturbances: 1-Very Mild Itch/Numbness Auditory Disturbances: 0-None Visual Disturbances: 0-None Headache: 0-None Present CIWA-Ar Total Score: 13 [facility] Progress Note (SOAP) Subjective: sweat tremor irritable anxiety restlessness Objective: 03/13/18 12:44 Vital Signs Temperature 96.3 F L 03/13/18 10:00 Pulse Rate 84 03/13/18 10:00 Respiratory Rate 16 03/13/18 10:00 Blood Pressure 139/106 03/13/18 10:00 O2 Sat by Pulse Oximetry (%) Laboratory Last Values WBC 3.6 K/mm3 (4.0-10.0) L D 03/12/18 07:55 RBC 3.03 M/mm3 (4.00-5.60) L 03/12/18 07:55 Hgb 10.3 GM/dL (11.7-16.9) L D 03/12/18 07:55 Hct 29.4 % (35.4-49) L D 03/12/18 07:55 MCV 97.2 fl (80-96) H 03/12/18 07:55 MCH 33.9 pg (25.7-33.7) H 03/12/18 07:55 MCHC 34.9 g/dl (32.0-35.9) 03/12/18 07:55 RDW 13.3 % (11.9-15.9) D 03/12/18 07:55 Plt Count 184 K/MM3 (134-434) D 03/12/18 07:55 MPV 7.7 fl (7.5-11.1) D 03/12/18 07:55 Sodium 142 mmol/L (136-145) 03/12/18 07:55 Potassium 3.1 mmol/L (3.5-5.1) L 03/12/18 07:55 Chloride 105 mmol/L (98-107) 03/12/18 07:55 Carbon Dioxide 26 mmol/L (21-32) 03/12/18 07:55 Anion Gap 11 (8-16) 03/12/18 07:55 BUN 6 mg/dL (7-18) L D 03/12/18 07:55 Creatinine 0.7 mg/dL (0.7-1.3) 03/12/18 07:55 Creat Clearance w eGFR > 60 (>60) 03/12/18 07:55 Random Glucose 81 mg/dL (74-106) 03/12/18 07:55 Calcium 8.1 mg/dL (8.5-10.1) L 03/12/18 07:55 Total Bilirubin 0.3 mg/dL (0.2-1.0) D 03/12/18 07:55 AST 92 U/L (15-37) H D 03/12/18 07:55 ALT 85 U/L (12-78) H D 03/12/18 07:55 Alkaline Phosphatase 68 U/L (45-117) D 03/12/18 07:55 Total Protein 6.7 g/dl (6.4-8.2) 03/12/18 07:55 Albumin 2.8 g/dl (3.4-5.0) L D 03/12/18 07:55 RPR Titer Nonreactive (NONREACTIVE) 03/12/18 07:55 03/13/18 12:47 lab noted K+ low Assessment: 03/13/18 12:47 withdrawal sx Plan: continue detox K+ supplement
[2018-03-13] MEDS: POTASSIUM CHLORIDE TABS 20 MEQ TABLET.ER (FP) PO SCH ×2 (13:51→22:23)
[2018-03-13 17:45] LABS: URINE APPEARANCE CLEAR; URINE BILIRUBIN NEGATIVE (<2.0 mg/dL); URINE BLOOD NEGATIVE (NEGATIVE); URINE COLOR STRAW; URINE GLUCOSE (UA) NEGATIVE (NEGATIVE); URINE KETONE NEGATIVE (NEGATIVE); URINE LEUK ESTERASE NEGATIVE (NEGATIVE); URINE NITRITE NEGATIVE (NEGATIVE); URINE PROTEIN NEGATIVE (NEGATIVE); URINE UROBILINOGEN NEGATIVE mg/dL (0.2-1.0)
[2018-03-13] MEDS: NICOTINE POLACRILEX 2 MG GUM BC PRN ×2 (18:26→22:26)
[2018-03-13] MEDS: THIAMINE HCL 100 MG TABLET (FP) PO SCH (22:22)
[2018-03-13] MEDS: chlordiazePOXIDE 5 MG CAPSULE PO SCH (22:23)
[2018-03-13] MEDS: MELATONIN 5 MG TABLETS PO PRN (22:25)
[2018-03-14] MEDS: chlordiazePOXIDE 5 MG CAPSULE PO SCH ×3 (05:51→17:28)
[2018-03-14] MEDS: POTASSIUM CHLORIDE TABS 20 MEQ TABLET.ER (FP) PO SCH (10:07)
[2018-03-14] MEDS: NICOTINE 14 MG/24 HOURS TOPICAL PATCH TD SCH (10:07)
[2018-03-14] MEDS: PRENATAL VITAMINS W/ FOLIC ACID TABLET (FP) PO SCH (10:07)
[2018-03-14] MEDS: HYDROCHLOROTHIAZIDE 25 MG TABLET (FP) PO SCH (10:07)
[2018-03-14] MEDS: LISINOPRIL 10 MG TABLET (FP) PO SCH ×2 (10:07→22:49)
--- NOTE | 2018-03-14 11:41 | PN ---
[facility] Progress Note (SOAP) Subjective: feeling better no tremor less sweat social with peers in day room discuss aftercare with provider K+ 3.8 Objective: 03/14/18 11:40 Vital Signs Temperature 97.9 F 03/14/18 10:00 Pulse Rate 96 H 03/14/18 10:00 Respiratory Rate 20 03/14/18 10:00 Blood Pressure 135/86 03/14/18 10:00 O2 Sat by Pulse Oximetry (%) Laboratory Last Values WBC 3.6 K/mm3 (4.0-10.0) L D 03/12/18 07:55 RBC 3.03 M/mm3 (4.00-5.60) L 03/12/18 07:55 Hgb 10.3 GM/dL (11.7-16.9) L D 03/12/18 07:55 Hct 29.4 % (35.4-49) L D 03/12/18 07:55 MCV 97.2 fl (80-96) H 03/12/18 07:55 MCH 33.9 pg (25.7-33.7) H 03/12/18 07:55 MCHC 34.9 g/dl (32.0-35.9) 03/12/18 07:55 RDW 13.3 % (11.9-15.9) D 03/12/18 07:55 Plt Count 184 K/MM3 (134-434) D 03/12/18 07:55 MPV 7.7 fl (7.5-11.1) D 03/12/18 07:55 Sodium 142 mmol/L (136-145) 03/12/18 07:55 Potassium 3.8 mmol/L (3.5-5.1) D 03/14/18 07:00 Chloride 105 mmol/L (98-107) 03/12/18 07:55 Carbon Dioxide 26 mmol/L (21-32) 03/12/18 07:55 Anion Gap 11 (8-16) 03/12/18 07:55 BUN 6 mg/dL (7-18) L D 03/12/18 07:55 Creatinine 0.7 mg/dL (0.7-1.3) 03/12/18 07:55 Creat Clearance w eGFR > 60 (>60) 03/12/18 07:55 Random Glucose 81 mg/dL (74-106) 03/12/18 07:55 Calcium 8.1 mg/dL (8.5-10.1) L 03/12/18 07:55 Total Bilirubin 0.3 mg/dL (0.2-1.0) D 03/12/18 07:55 AST 92 U/L (15-37) H D 03/12/18 07:55 ALT 85 U/L (12-78) H D 03/12/18 07:55 Alkaline Phosphatase 68 U/L (45-117) D 03/12/18 07:55 Total Protein 6.7 g/dl (6.4-8.2) 03/12/18 07:55 Albumin 2.8 g/dl (3.4-5.0) L D 03/12/18 07:55 Urine Color Straw 03/13/18 Unknown Urine Appearance Clear 03/13/18 Unknown Urine pH 7.0 (5.0-8.0) D 03/13/18 Unknown Ur Specific [place] 1.005 (1.001-1.035) 03/13/18 Unknown Urine Protein Negative (NEGATIVE) 03/13/18 Unknown Urine Glucose (UA) Negative (NEGATIVE) 03/13/18 Unknown Urine Ketones Negative (NEGATIVE) 03/13/18 Unknown Urine Blood Negative (NEGATIVE) 03/13/18 Unknown Urine Nitrite Negative (NEGATIVE) 03/13/18 Unknown Urine Bilirubin Negative (<2.0 mg/dL) 03/13/18 Unknown Urine Urobilinogen Negative mg/dL (0.2-1.0) 03/13/18 Unknown Ur Leukocyte Esterase Negative (NEGATIVE) 03/13/18 Unknown RPR Titer Nonreactive (NONREACTIVE) 03/12/18 07:55 lab noted K+ 3.8 Assessment: 03/14/18 11:40 mild withdrawal sx Plan: medically supervised detox discontinue K+ supplement
[2018-03-14] MEDS: NICOTINE POLACRILEX 2 MG GUM BC PRN (13:45)
[2018-03-14] MEDS: chlordiazePOXIDE HCL 10 MG CAPSULE PO SCH (22:49)
[2018-03-14] MEDS: THIAMINE HCL 100 MG TABLET (FP) PO SCH (22:49)
[2018-03-14] MEDS: MELATONIN 5 MG TABLETS PO PRN (22:49)
[2018-03-15] MEDS: chlordiazePOXIDE HCL 10 MG CAPSULE PO SCH (05:31)
--- NOTE | 2018-03-15 08:42 | DS ---
[facility] Detox Discharge Summary Admission Date: 03/11/18 Discharge Date: 03/15/18 - History Present History: Alcohol Dependence - Physical Exam Results Vital Signs: Vital Signs Temperature 97.7 F 03/15/18 06:00 Pulse Rate 74 03/15/18 06:00 Respiratory Rate 18 03/15/18 06:00 Blood Pressure 130/65 03/15/18 06:00 O2 Sat by Pulse Oximetry (%) Pertinent Admission Physical Exam Findings: 33 years old male admitted 03/11/18 for alcohol withdrawal sx completed alcohol detox regimen tolerated well denies alcohol withdrawal sx alert oriented x 3 no acute distress aftercare [facility] services brief motivational intervention on sobriety alcohol withdrawal sx Vital Signs Temperature 97.7 F 03/15/18 06:00 Pulse Rate 74 03/15/18 06:00 Respiratory Rate 18 03/15/18 06:00 Blood Pressure 130/65 03/15/18 06:00 O2 Sat by Pulse Oximetry (%) Laboratory Last Values WBC 3.6 K/mm3 (4.0-10.0) L D 03/12/18 07:55 RBC 3.03 M/mm3 (4.00-5.60) L 03/12/18 07:55 Hgb 10.3 GM/dL (11.7-16.9) L D 03/12/18 07:55 Hct 29.4 % (35.4-49) L D 03/12/18 07:55 MCV 97.2 fl (80-96) H 03/12/18 07:55 MCH 33.9 pg (25.7-33.7) H 03/12/18 07:55 MCHC 34.9 g/dl (32.0-35.9) 03/12/18 07:55 RDW 13.3 % (11.9-15.9) D 03/12/18 07:55 Plt Count 184 K/MM3 (134-434) D 03/12/18 07:55 MPV 7.7 fl (7.5-11.1) D 03/12/18 07:55 Sodium 142 mmol/L (136-145) 03/12/18 07:55 Potassium 3.8 mmol/L (3.5-5.1) D 03/14/18 07:00 Chloride 105 mmol/L (98-107) 03/12/18 07:55 Carbon Dioxide 26 mmol/L (21-32) 03/12/18 07:55 Anion Gap 11 (8-16) 03/12/18 07:55 BUN 6 mg/dL (7-18) L D 03/12/18 07:55 Creatinine 0.7 mg/dL (0.7-1.3) 03/12/18 07:55 Creat Clearance w eGFR > 60 (>60) 03/12/18 07:55 Random Glucose 81 mg/dL (74-106) 03/12/18 07:55 Calcium 8.1 mg/dL (8.5-10.1) L 03/12/18 07:55 Total Bilirubin 0.3 mg/dL (0.2-1.0) D 03/12/18 07:55 AST 92 U/L (15-37) H D 03/12/18 07:55 ALT 85 U/L (12-78) H D 03/12/18 07:55 Alkaline Phosphatase 68 U/L (45-117) D 03/12/18 07:55 Total Protein 6.7 g/dl (6.4-8.2) 03/12/18 07:55 Albumin 2.8 g/dl (3.4-5.0) L D 03/12/18 07:55 Urine Color Straw 03/13/18 Unknown Urine Appearance Clear 03/13/18 Unknown Urine pH 7.0 (5.0-8.0) D 03/13/18 Unknown Ur Specific [place] 1.005 (1.001-1.035) 03/13/18 Unknown Urine Protein Negative (NEGATIVE) 03/13/18 Unknown Urine Glucose (UA) Negative (NEGATIVE) 03/13/18 Unknown Urine Ketones Negative (NEGATIVE) 03/13/18 Unknown Urine Blood Negative (NEGATIVE) 03/13/18 Unknown Urine Nitrite Negative (NEGATIVE) 03/13/18 Unknown Urine Bilirubin Negative (<2.0 mg/dL) 03/13/18 Unknown Urine Urobilinogen Negative mg/dL (0.2-1.0) 03/13/18 Unknown Ur Leukocyte Esterase Negative (NEGATIVE) 03/13/18 Unknown RPR Titer Nonreactive (NONREACTIVE) 03/12/18 07:55 lab noted - Treatment Hospital Course: Detox Protocol Followed, Detoxed Safely, Responded well, Discharged Condition Good, Rehab Referral Accepted Patient has Accepted a Rehab Referral to: [facility] - Medication Discharge Medications: Ambulatory Orders Bupropion HCl [Wellbutrin Xl -] 150 mg PO DAILY #30 tab.sr.24h 03/12/18 Lisinopril 10 mg PO DAILY #30 tablet 03/14/18 - Diagnosis (1) Alcohol dependence with uncomplicated withdrawal Current Visit: Yes Status: Acute (2) Hypertension Current Visit: Yes Status: Chronic Qualifiers: Hypertension type: essential hypertension Qualified Code(s): I10 - Essential (primary) hypertension (3) Anxious mood Current Visit: Yes Status: Suspected - AMA Did Patient Leave Against Medical Advice: No
[2018-03-15 09:51] VITALS: BP 141/82; PULSE 111; TEMP 96.8
== END 2018-03-15 09:38 | disposition home or self-care (01) | DRG 775 ==
LOC: YASAS 19:26 → Y6N 20:20
PROVIDERS: ADMIT Surgery; ATTEND Surgery
PROC: HZ2ZZZZ Detoxification Services for Substance Abuse Treatment (ICD-10-PCS; principal; 2018-03-11)
DX: F10.230 Alcohol dependence with withdrawal, uncomplicated (principal); F17.213 Nicotine dependence, cigarettes, with withdrawal; F32.9 Major depressive disorder, single episode, unspecified; F41.9 Anxiety disorder, unspecified; I10 Essential (primary) hypertension; E86.0 Dehydration
CPT/HCPCS: 36415; 80053; 81003; 84132; 85027; 86593; 93005; 93010; J0735